=== PATIENT | female | born 1975 | race Caucasian/White ===

== ENCOUNTER 2016-11-14 09:56 | Day surgery (SDC) | payer BC ==
[2016-11-14] MEDS ORDERED: PROPOFOL 10 MG/ML VIAL IV ONE (14:00)
[2016-11-14] MEDS ORDERED: LIDOCAINE 2% MDV (20MG/ML) 20ML VIAL IV ONE (14:00)
[2016-11-14] MEDS ORDERED: MIDAZOLAM HCL 2MG/2ML VIAL IV ONE (14:00)
--- NOTE | 2016-11-15 08:10 | Operative Note ---
DATE OF SURGERY: OPERATION: COLONOSCOPY with random biopsy. PREOPERATIVE DIAGNOSIS: Diarrhea. POSTOPERATIVE DIAGNOSIS: Normal colon, rule out microscopic colitis. PROCEDURE: After informed consent was obtained from the patient, she was placed in the left lateral decubitus position in the endoscopy suite, sedated and monitored by the department of anesthesia. Digital rectal exam was unremarkable. A well-lubricated HHF140 colonoscope was inserted into the rectum and advanced to the cecum. The ileocecal valve was identified and cannulated revealing a normal-appearing distal terminal ileum. The preparation quality was excellent. The cecum, ascending colon, transverse colon, descending colon, sigmoid colon, and rectum were unremarkable. No polyps, mass lesions, or inflammation was seen. Random biopsies were obtained from the ascending, transverse, and descending colon. The sigmoid colon and rectum were unremarkable. Forward and J-turn views of the rectum and anorectum were unremarkable. The endoscope was straightened, the rectal ampulla deflated, and the endoscope was removed. RECOMMENDATIONS: The patient should resume her fiber supplementation. We will await the results of the tissue histology before further recommendations are made. In any event, she should undergo repeat colonoscopy in 10 years, which would be age 51 at the time screening would begin. As always, thank you for allowing me to participate in the healthcare of your patients. Ray Chun DO CC: Dr. Teodoro MUNIZ
== END 2016-11-14 11:39 | disposition home or self-care (01) ==
LOC: HOP 09:56
PROVIDERS: ATTEND Internal Medicine Gastroenterology
DX: R19.7 Diarrhea, unspecified (principal); E78.00 Pure hypercholesterolemia, unspecified
CPT/HCPCS: 81025